=== PATIENT | female | born 1970 | race Caucasian/White ===

== ENCOUNTER → 2025-07-22 12:20 | Outpatient (REF) | payer OTHER, SELFPAY | LOC: RAD 12:20 | PROVIDERS: ATTENDING PHYSICIAN Family Medicine; FAMILY PHYSICIAN Family Medicine | DX: S93.491A Sprain of other ligament of right ankle, initial encounter (principal) | CPT/HCPCS: 73610 ==

== ENCOUNTER → 2025-08-19 12:51 | Outpatient (REF) | payer OTHER, SELFPAY | LOC: HWRAD 12:51 | PROVIDERS: ATTENDING PHYSICIAN Obstetrics & Gynecology Gynecology; FAMILY PHYSICIAN Family Medicine | DX: N95.0 Postmenopausal bleeding (principal) | CPT/HCPCS: 76830; 76856 ==